=== PATIENT | male | born 1965 | race Caucasian/White ===

== ENCOUNTER 2016-12-15 17:58 | Inpatient (IN) | payer MEDICAID, OTHER ==
[~2016-12-15] VITALS: Ht 170.2 cm; Wt 124.9 kg
[2016-12-15 18:10] VITALS: BP 123/79; PULSE 99; RESP 26; TEMP 99.1; O2SAT 95
[2016-12-15] MEDS ORDERED: [UNRECOGNIZED DRUG - OTHER] PO (18:16)
[2016-12-15 18:17] VITALS: O2SAT 95
--- NOTE | 2016-12-15 18:21 | PD ---
HPI Chief Complaint: Respiratory Symptoms Time Seen by Provider: 18:10 Travel History International Travel<30 days: No Contact w/Intl Traveler<30days: No Traveled to known affect area: No History of Present Illness HPI Patient is a 51-year-old male with a history of lung cancer presents emergency Department with shortness of breath and cough. Patient states been going on for the past few weeks. He is followed by transport medic Aracely and was told he had pneumonia. He states he had just finished the dosing regimen of Levaquin was feeling better he decided coming to be seen. Out in triage she was satting 89% and he was placed on 2 L oxygen brought back to the emergency department for evaluation. Denies any fever denies any sputum production but does endorse a wet cough. He is not currently on chemotherapy but is scheduled to start soon. PFSH Past Medical History Cancer: Yes (ALK LUNG CANCER) Past Surgical History Other Surgery: Yes (PLEURAL EFFUSION) Social History Alcohol Use: Yes Tobacco Use: No Substance Use: No Allergies-Medications (Allergen,Severity, Reaction): Coded Allergies: Penicillins (Verified Allergy, Unknown, 12/15/16) Reported Meds & Prescriptions Reported Meds & Active Scripts Active Reported [[place]] 400 Mg PO BID Review of Systems Except as stated in HPI: all other systems reviewed are Neg Physical Exam Narrative GENERAL: Well-developed well-nourished appears somewhat short of breath but nontoxic. SKIN: Focused skin assessment warm/dry. HEAD: Atraumatic. Normocephalic. EYES: Pupils equal and round. No scleral icterus. No injection or drainage. ENT: No nasal bleeding or discharge. Mucous membranes pink and moist. NECK: Trachea midline. No JVD. CARDIOVASCULAR: Regular rate and rhythm. No murmur appreciated. RESPIRATORY: Tachypneic with decreased breath sounds particularly on the right. No rales no rhonchi appreciated. GASTROINTESTINAL: Abdomen soft, non-tender, nondistended. Hepatic and splenic margins not palpable. MUSCULOSKELETAL: No obvious deformities. No clubbing. No cyanosis. No edema. NEUROLOGICAL: Awake and alert. No obvious cranial nerve deficits. Motor grossly within normal limits. Normal speech. PSYCHIATRIC: Appropriate mood and affect; insight and judgment normal. Data Data Last Documented VS Vital Signs Date Time Temp Pulse Resp B/P (MAP) Pulse Ox O2 Delivery O2 Flow Rate FiO2 12/15/16 18:17 95 8/28/17 18:17 Nasal Cannula 2.00 12/15/16 18:10 99.1 99 26 123/79 (94) Orders Orders Complete Blood Count With Diff (12/15/16 18:10) Comprehensive Metabolic Panel (12/15/16 18:10) Prothrombin Time / Inr (Pt) (12/15/16 18:10) Act Partial Throm Time (Ptt) (12/15/16 18:10) Lactic Acid Sepsis Protocol (12/15/16 18:10) Magnesium (Mg) (12/15/16 18:10) Phosphorus (Po4) (12/15/16 18:10) Ckmb (Isoenzyme) Profile (12/15/16 18:10) Troponin I (12/15/16 18:10) Urinalysis - C+S If Indicated (12/15/16 18:10) Blood Culture (12/15/16 18:10) Chest, Single Ap (12/15/16 18:10) Blood Glucose (12/15/16 18:10) Ecg Monitoring (12/15/16 18:10) Iv Access Insert/Monitor (12/15/16 18:10) Oximetry (12/15/16 18:10) Oxygen Administration (12/15/16 18:10) Vancomycin Inj (Vancomycin Inj) (12/15/16 18:45) Aztreonam Inj (Azactam Inj) (12/15/16 18:45) Ct Pulmonary Angiogram (12/15/16 ) Labs Laboratory Tests Test 12/15/16 18:10 White Blood Count 14.2 TH/MM3 Red Blood Count 5.03 MIL/MM3 Hemoglobin 14.4 GM/DL Hematocrit 44.0 % Mean Corpuscular Volume 87.6 FL Mean Corpuscular Hemoglobin 28.6 PG Mean Corpuscular Hemoglobin Concent 32.7 % Red Cell Distribution Width 13.9 % Platelet Count 342 TH/MM3 Mean Platelet Volume 8.7 FL Neutrophils (%) (Auto) 79.9 % Lymphocytes (%) (Auto) 9.0 % Monocytes (%) (Auto) 7.7 % Eosinophils (%) (Auto) 2.0 % Basophils (%) (Auto) 1.4 % Neutrophils # (Auto) 11.3 TH/MM3 Lymphocytes # (Auto) 1.3 TH/MM3 Monocytes # (Auto) 1.1 TH/MM3 Eosinophils # (Auto) 0.3 TH/MM3 Basophils # (Auto) 0.2 TH/MM3 CBC Comment DIFF FINAL Differential Comment MDM Medical Decision Making Medical Screen Exam Complete: Yes Emergency Medical Condition: Yes Differential Diagnosis pneumonia, sepsis, hypoxic respiratory failure Narrative Course Patient brought to the emergency department room, is placed on 2 L nasal cannula and his oxygen saturation quickly normalized to 96%. He appears much more comfortably after reassess. Blood cultures drawn and sent lactic acid CBC showing white blood cell count of 14,000. Remainder of chemistry workup is pending at this time. Patient was started on vancomycin and Azactam. Has penicillin allergy but was had a kid at the time. He does not know his exact reaction. Patient states he was on an unknown antibiotic and does not have the paperwork and doesn't remember the exact name. He says it was one time a day drug and was 500 mg and when I mention Levaquin he thinks that's the drug he was taken. Patient was discussed with Dr. Tsang at 1900 shift change to follow-up blood work and disposition the patient properly. Diagnosis Primary Impression: Acute respiratory failure with hypoxia Additional Impressions: PNA (pneumonia) Sepsis King Stone MD Dec 15, 2016 18:21
[2016-12-15 18:45] LABS: AUTOMATED NEUTROPHIL # 11.3 TH/MM3 (1.8-7.7); BASOPHIL # 0.2 TH/MM3 (0-0.2); BASOPHIL % 1.4 % (0.0-2.0); EOSINOPHIL # 0.3 TH/MM3 (0-0.4); HEMO FLAGS DIFF FINAL; LYMPHOCYTE # 1.3 TH/MM3 (1.0-4.8); MEAN CELL VOLUME 87.6 FL (80.0-100.0); MEAN CORPUSCULAR HEMOGLOBIN 28.6 PG (27.0-34.0); MEAN CORPUSCULAR HGB CONC 32.7 % (32.0-36.0); MONO % 7.7 % (0.0-8.0); NEUT % 79.9 % (16.0-70.0); PLATELET COUNT 342 TH/MM3 (150-450); RED BLOOD COUNT 5.03 MIL/MM3 (4.50-5.90); RED CELL DISTRIBUTION WIDTH 13.9 % (11.6-17.2); WHITE BLOOD COUNT 14.2 TH/MM3 (4.0-11.0)
[2016-12-15] MEDS ORDERED: VANCOMYCIN INJ 1,000 MG in SODIUM CHLOR 0.9% 250 ML INJ 250 ML IV ONE (18:45)
[2016-12-15] MEDS ORDERED: AZTREONAM INJ 2,000 MG in SODIUM CHLORIDE 0.9% INJ 100 ML IV ONE (18:45)
[2016-12-15 18:59] LABS: CHLORIDE 98 MEQ/L (98-107); POTASSIUM 3.5 MEQ/L (3.5-5.1); SODIUM (NA) 137 MEQ/L (136-145)
[2016-12-15 19:03] LABS: APTT (PATIENT) 28.5 SEC (24.3-30.1); INTERNATIONAL NORMALIZED RATIO 0.9 RATIO; PROTHROMBIN TIME - PATIENT 10.3 SEC (9.8-11.6)
[2016-12-15 19:05] LABS: ANION GAP 8 MEQ/L (5-15); BICARBONATE 31.3 MEQ/L (21.0-32.0); BLOOD UREA NITROGEN 18 MG/DL (7-18); MAGNESIUM 2.1 MG/DL (1.5-2.5)
[2016-12-15 19:07] LABS: ALT (GPT) 18 U/L (12-78)
[2016-12-15 19:08] LABS: AST (GOT) 13 U/L (15-37); GLOMERULAR FILTRATION RATE 84 ML/MIN (>89)
[2016-12-15 19:09] LABS: TOTAL BILIRUBIN ADULT 0.4 MG/DL (0.2-1.0)
[2016-12-15 19:10] LABS: ALKALINE PHOSPHATASE 80 U/L (45-117)
[2016-12-15 19:18] LABS: CREATINE KINASE 79 U/L (39-308)
[2016-12-15] MEDS ORDERED: IOHEXOL 350 MG/ML 10 ML VIAL (for RAD DIAG) IVCONTRAST ONE (19:43)
[2016-12-15 19:51] VITALS: BP 119/78; PULSE 91; RESP 20; O2SAT 96
--- NOTE | 2016-12-15 19:58 | RADRPT ---
EXAM DATE/TIME: 12/15/2016 18:29 [facility] COMPARISON: CT PULMONARY ANGIOGRAM, December 15, 2016, 19:26. INDICATIONS : Cough. MEDICAL HISTORY : Carcinoma, lung. SURGICAL HISTORY : None. ENCOUNTER: Initial ACUITY: 3 days PAIN SCORE: 0/10 LOCATION: Bilateral chest FINDINGS: Prior chest x-rays are unavailable for comparison. There is a CT compatible Infuse-a-Po rt in place from the right internal jugular approach with the tip overlying the SVC. The heart size is normal. The heart and mediastinal structures appear to be shifted towards the right. The left zulma g appears clear. There is increased density at the periphery of the right lung and at the right base. There is elevation of the right hemidiaphragm. The bony structures are grossly intact. CONCLUSION: 1. Volume loss with suspected pleural and parenchymal changes at the right lung. This can be correla augustine if the patient has had treatment at the right lung which could lead to atelectasis. Superimposed areas of consolidation at the right lung could have a similar appearance. 2. The left lung is clear. Eugene Roy MD on December 15, 2016 at 19:49 Board Certified Radiologist. This report was verified electronically.
--- NOTE | 2016-12-15 21:10 | RADRPT ---
EXAM DATE/TIME: 12/15/2016 19:26 [facility] COMPARISON: No previous studies available for comparison. INDICATIONS : Shortness of breath. Cough. Evaluate for embolism. IV CONTRAST: 100 cc Omnipaque 350 (iohexol) IV RADIATION DOSE: 21.74 CTDIvol (mGy) MEDICAL HISTORY : Carcinoma, lung. SURGICAL HISTORY : None. ENCOUNTER: Initial ACUITY: 3 weeks PAIN SCALE: 5/10 LOCATION: Bilateral chest TECHNIQUE: Volumetric scanning of the chest was performed using a pulmonary embolism protocol MIP images were re constructed. Using automated exposure control and adjustment of the mA and/or kV according to patien t size, radiation dose was kept as low as reasonably achievable to obtain optimal diagnostic quality images. DICOM format image data is available electronically for review and comparison. Follow-up recommendations for detected pulmonary nodules are based at a minimum on nodule size and pa tient risk factors according to Fleischner Society Guidelines. FINDINGS: No pulmonary embolus is seen. The patient does appear to have volume loss in the right chest. This can be correlated if the patient has had any prior surgical intervention or treatment on the right si de. The patient does have areas of consolidation posterior right upper lobe, the lateral right midlu ng and at the anterior mid and posterior right lower lung. There is a suspected loculated pleural ef fusion seen posteriorly measuring 10.0 x 4.9 cm. The left lung is grossly clear. There is prominent soft tissue density in the subcarinal region and in the right tracheal bronchial region concerning f or possible adenopathy. There is increased density seen at the right hilum. There are mildly promin ent lymph nodes seen in the prevascular region on the left side measuring up to 1.3 cm. There do delmi ear to be enlarged lymph nodes in the right axillary region measuring up to 1.8 cm. There is a right -sided [id number] in place. The patient does have a 2.3 cm low density left adrenal mass consiste nt with an adenoma. There are some mildly prominent lymph nodes in the upper celiac region. Focal jorge ne lesions are not clearly seen. CONCLUSION: 1. No pulmonary embolus. 2. Areas of consolidation seen throughout the right lung. There also appears to be volume loss in th e right lung with shift of the heart and mediastinal structures towards the right. It should be petr elated if the patient has had treatment in the right lung. The patient has a history of lung carcino ma. There are areas of increased density seen throughout much of the right lung could be related to p ost treatment change, acute consolidation from infection or neoplastic change. 3. Suspected loculated effusions seen posteriorly and inferiorly in the right chest. 4. Adenopathy in the right axillary region and possibly in the subcarinal and right hilar regions. T here are also some mildly prominent lymph nodes in the left prevascular region. There are mildly pro minent lymph nodes in the upper celiac region. 5. Left adrenal gland adenoma. Eugene Roy MD on December 15, 2016 at 20:51 Board Certified Radiologist. This report was verified electronically.
[2016-12-15] MEDS ORDERED: Vancomycin Consult Pharmacy 1 EA OTHER SCH (22:00)
[2016-12-15] MEDS ORDERED: SODIUM CHLORIDE 0.9% FLUSH 10 ML FLUSH IV FLUSH PRN (22:00)
[2016-12-15] MEDS ORDERED: NALOXONE HCL 0.4 MG/ML AMP IV PRN (22:00)
[2016-12-15] MEDS ORDERED: RESP: IPRATROPIUM 0.5 MG/2.5 ML NEB NEB PRN (22:00)
[2016-12-15 22:11] LABS: BLOOD GAS CARBOXYHEMOGLOBIN 1.2 % (0-4); BLOOD GAS HCO3 32 mmol/L (22-26); BLOOD GAS O2 HGB SATURATION 89 % (90-100); BLOOD GAS OXYGEN CONTENT 17.2 Vol % (12.0-20.0); BLOOD GAS PCO2 51 mmHG (38-42); BLOOD GAS PO2 64 mmHG (61-120); BLOOD GAS TOTAL HGB 13.8 G/DL (12.0-16.0); TEMP CORR TO 98.6
[2016-12-15 22:12] LABS: CRITICAL VALUE YES; DRAW SITE RT RADIAL; FIO2 21 %; NUMBER OF ARTERIAL PUNCTURES 2; OXYGEN DEVICE ROOM AIR; STAT YES; ULNAR PULSE PRESENT
--- NOTE | 2016-12-15 22:17 | PD ---
Physical Exam Time Seen by Provider: 22:[address] Stone had me check the results of the CT angiogram and admit the patient. Data Data Last Documented VS Vital Signs Date Time Temp Pulse Resp B/P (MAP) Pulse Ox O2 Delivery O2 Flow Rate FiO2 12/15/16 19:51 91 20 119/78 (92) 96 Nasal Cannula 4.00 12/15/16 18:10 99.1 Orders Orders Complete Blood Count With Diff (12/15/16 18:10) Comprehensive Metabolic Panel (12/15/16 18:10) Prothrombin Time / Inr (Pt) (12/15/16 18:10) Act Partial Throm Time (Ptt) (12/15/16 18:10) Lactic Acid Sepsis Protocol (12/15/16 18:10) Magnesium (Mg) (12/15/16 18:10) Phosphorus (Po4) (12/15/16 18:10) Ckmb (Isoenzyme) Profile (12/15/16 18:10) Troponin I (12/15/16 18:10) Urinalysis - C+S If Indicated (12/15/16 18:10) Blood Culture (12/15/16 18:10) Chest, Single Ap (12/15/16 18:10) Blood Glucose (12/15/16 18:10) Ecg Monitoring (12/15/16 18:10) Iv Access Insert/Monitor (12/15/16 18:10) Oximetry (12/15/16 18:10) Oxygen Administration (12/15/16 18:10) Vancomycin Inj (Vancomycin Inj) (12/15/16 18:45) Aztreonam Inj (Azactam Inj) (12/15/16 18:45) Ct Pulmonary Angiogram (12/15/16 ) Iohexol 350 Inj (Omnipaque 350 Inj) (12/15/16 19:43) Arterial Blood Gas (Abg) (12/15/16 ) Electrocardiogram (12/15/16 18:07) Admit To Inpatient (12/15/16 ) Vital Signs (Adult) Q4H (12/15/16 21:58) Activity Oob With Assistance (12/15/16 21:58) Vice President Of Manufacturing / Telemetry .CONTINUOUS (12/15/16 21:58) Intake + Output VASILIY.QSHIFT (12/15/16 21:58) Diet Heart Healthy (12/16/16 Breakfast) Sodium Chloride 0.9% Flush (Ns Flush) (12/15/16 22:00) Sodium Chloride 0.9% Flush (Ns Flush) (12/16/16 09:00) Basic Metabolic Panel (Bmp) (12/16/16 06:00) Complete Blood Count With Diff (12/16/16 06:00) Pt Request For Service (12/15/16 21:58) Case Management Consult (12/15/16 21:58) Naloxone Inj (Narcan Inj) (12/15/16 22:00) Inpatient Certification (12/15/16 ) Ipratropium Neb (Atrovent Neb) (12/15/16 22:00) Vancomycin Consult Pharmacy (Vancomycin (12/15/16 22:00) Aztreonam Inj (Azactam Inj) (12/16/16 09:00) Consult Pulmonology (12/15/16 ) Admit Order (Ed Use Only) (12/15/16 21:57) Admit Order (Ed Use Only) (12/15/16 21:57) (Hub Use Only)Inp Phy Cons/Ref (12/15/16 ) Labs Laboratory Tests Test 12/15/16 18:10 White Blood Count 14.2 TH/MM3 Red Blood Count 5.03 MIL/MM3 Hemoglobin 14.4 GM/DL Hematocrit 44.0 % Mean Corpuscular Volume 87.6 FL Mean Corpuscular Hemoglobin 28.6 PG Mean Corpuscular Hemoglobin Concent 32.7 % Red Cell Distribution Width 13.9 % Platelet Count 342 TH/MM3 Mean Platelet Volume 8.7 FL Neutrophils (%) (Auto) 79.9 % Lymphocytes (%) (Auto) 9.0 % Monocytes (%) (Auto) 7.7 % Eosinophils (%) (Auto) 2.0 % Basophils (%) (Auto) 1.4 % Neutrophils # (Auto) 11.3 TH/MM3 Lymphocytes # (Auto) 1.3 TH/MM3 Monocytes # (Auto) 1.1 TH/MM3 Eosinophils # (Auto) 0.3 TH/MM3 Basophils # (Auto) 0.2 TH/MM3 CBC Comment DIFF FINAL Differential Comment Prothrombin Time 10.3 SEC Prothromb Time International Ratio 0.9 RATIO Activated Partial Thromboplast Time 28.5 SEC Blood Urea Nitrogen 18 MG/DL Creatinine 0.95 MG/DL Random Glucose 135 MG/DL Total Protein 7.5 GM/DL Albumin 3.3 GM/DL Calcium Level 8.6 MG/DL Phosphorus Level 4.5 MG/DL Magnesium Level 2.1 MG/DL Alkaline Phosphatase 80 U/L Aspartate Amino Transf (AST/SGOT) 13 U/L Alanine Aminotransferase (ALT/SGPT) 18 U/L Total Bilirubin 0.4 MG/DL Sodium Level 137 MEQ/L Potassium Level 3.5 MEQ/L Chloride Level 98 MEQ/L Carbon Dioxide Level 31.3 MEQ/L Anion Gap 8 MEQ/L Estimat Glomerular Filtration Rate 84 ML/MIN Lactic Acid Level 1.7 mmol/L Total Creatine Kinase 79 U/L Troponin I LESS THAN 0.02 NG/ML MDM Medical Record Reviewed: Yes Supervised Visit with KASSANDRA: Yes Interpretation(s) The CT angiogram shows no pulmonary embolus but there are areas of consolidation seen throughout the right lung. Also there is a volume loss in the right lung with shift of the heart and mediastinum towards the right. The patient does have a history of cancer but unfortunately we do not have a previous film to compare with. There are suspected loculated effusion seen posterior and inferiorly in the right chest. Adenopathy in the right axillary region is noted. The blood gases on room air show pH 7.4, CO2 51, PO2 64 and 88.5% oxygenation on room air. Differential Diagnosis Pneumonia, hypoxemia, congestive heart failure, lung cancer, pleural effusion Narrative Course The patient has a right pleural effusion with possible pneumonia and hypoxemia. He does have known lung cancer. He will be admitted to the ICU here at [facility]. Physician Communication Physician Communication I discussed the patient with Dr. Pavon. Diagnosis Primary Impression: PNA (pneumonia) Additional Impressions: Hypoxemia Lung malignancy Pleural effusion, right Admitting Information Admitting Physician Requests: Admit Barney Tsang MD Dec 15, 2016 22:17
[2016-12-15 22:52] VITALS: BP 101/88; PULSE 94; RESP 22; O2SAT 94
[2016-12-15] MEDS ORDERED: VANCOMYCIN 1,000 MG/NS 250 ML IV ONE ×2 (23:00)
[2016-12-15 23:07] LABS: BLOOD, URINE SMALL (NEG); GLUCOSE,URINE NEG (NEG); KETONE, URINE NEG (NEG); NITRITE,URINE NEG (NEG)
[2016-12-15 23:21] LABS: MUCUS URINE FEW /lpf (OCC); URINE COLOR YELLOW (YELLW/STRAW)
[2016-12-15 23:22] VITALS: BP 117/80; PULSE 84; RESP 30; TEMP 98.4; O2SAT 97
[2016-12-15 23:22] LABS: COMMENT (UR) CULT NOT INDICATED; CULTURE IF INDICATED CULT NOT INDICATED; SQUAMOUS EPITHELIAL CELL URINE 0-5 /hpf (0-5)
[2016-12-15 23:36] VITALS: O2SAT 96
[2016-12-15] MEDS: CHLORHEXIDINE GLUCONATE 2 % 1 PACK (2 CLOTHS)(taper/protocol) TOPICAL SCH (23:43)
[2016-12-15] MEDS ORDERED: CHLORHEXIDINE GLUCONATE 2 % 1 PACK (2 CLOTHS)(extra cloths) TOPICAL PRN (23:45)
[2016-12-16] VITALS (25 sets, daily range): BP systolic 91–147; BP diastolic 54–88; PULSE 66–90; RESP 10–26; TEMP 98–98.9; O2SAT 91–97
[2016-12-16 05:02] LABS: AUTOMATED NEUTROPHIL # 10.5 TH/MM3 (1.8-7.7); BASOPHIL # 0.1 TH/MM3 (0-0.2); BASOPHIL % 0.5 % (0.0-2.0); EOSINOPHIL # 0.2 TH/MM3 (0-0.4); EOSINOPHIL % 1.7 % (0.0-4.0); HEMATOCRIT 39.8 % (39.0-51.0); HEMO FLAGS DIFF FINAL; LYMPH % 7.1 % (9.0-44.0); LYMPHOCYTE # 0.9 TH/MM3 (1.0-4.8); MEAN CELL VOLUME 87.4 FL (80.0-100.0); MEAN CORPUSCULAR HEMOGLOBIN 28.5 PG (27.0-34.0); MEAN CORPUSCULAR HGB CONC 32.6 % (32.0-36.0); MONO % 6.6 % (0.0-8.0); NEUT % 84.1 % (16.0-70.0); PLATELET COUNT 290 TH/MM3 (150-450); RED BLOOD COUNT 4.55 MIL/MM3 (4.50-5.90); RED CELL DISTRIBUTION WIDTH 13.5 % (11.6-17.2); WHITE BLOOD COUNT 12.5 TH/MM3 (4.0-11.0)
[2016-12-16 05:16] LABS: POTASSIUM 3.9 MEQ/L (3.5-5.1)
[2016-12-16 05:21] LABS: BICARBONATE 33.6 MEQ/L (21.0-32.0)
[2016-12-16] MEDS: AZTREONAM INJ 2,000 MG in SODIUM CHLORIDE 0.9% INJ 100 ML IV SCH ×2 (08:56→20:54)
[2016-12-16] MEDS: SODIUM CHLORIDE 0.9% FLUSH 10 ML FLUSH IV FLUSH SCH ×2 (08:56→20:54)
--- NOTE | 2016-12-16 09:10 | EKG ---
Date Performed: 12/15/2016 Time Performed: 18:07:33 PTAGE: 51 years EKG: Sinus rhythm POSSIBLE LEFT ATRIAL ENLARGEMENT BORDERLINE ECG INTERPRETATION BASED ON A DEFAULT AGE OF 42 YEARS NO PREVIOUS TRACING DOCTOR: Swapnil Zamorano Interpretating Date/Time 12/16/2016 09:08:06
[2016-12-16] MEDS ORDERED: LACTULOSE SYRUP 20 GM/30 ML CUP PO PRN (11:00)
[2016-12-16] MEDS ORDERED: ACETAMINOPHEN 325 MG TAB PO PRN ×2 (11:00)
[2016-12-16] MEDS ORDERED: SENNOSIDES 8.6 MG TAB PO PRN (11:00)
[2016-12-16] MEDS ORDERED: BISACODYL 10 MG SUPP RECTAL PRN (11:00)
[2016-12-16] MEDS ORDERED: [UNRECOGNIZED DRUG - OTHER] PO SCH (11:00)
[2016-12-16] MEDS ORDERED: MAGNESIUM HYDROXIDE SUSP 30 ML CUP PO PRN (11:00)
[2016-12-16] MEDS ORDERED: ONDANSETRON HCL 4 MG/2 ML VIAL IVP PRN (11:00)
--- NOTE | 2016-12-16 13:10 | HHI.HP ---
HPI Service [facility] Primary Care Physician No Primary Care Physician Admission Diagnosis pneumonia, pleural effusion Diagnoses: (1) Sepsis Diagnosis: Principal (2) Acute respiratory failure with hypoxia Diagnosis: Principal (3) Hypoxemia (4) Loculated pleural effusion Diagnosis: Principal (5) PNA (pneumonia) Diagnosis: Principal Chief Complaint: Shortness of breath, fatigue Travel History International Travel<30 Days: No Contact w/Intl Traveler <30 Da: No Traveled to Known Affected Are: No Sepsis Criteria SIRS Criteria (2 or more): Heart rate over 90, WBC > 40062, < 4000 or > 10% bands Sepsis Criteria (SIRS+source): Infect source susp/known Criteria Outcome: Meets sepsis criteria History of Present Illness Written by Ignacio Tsang, acting as scribe for Dr. Drew on 12/16/16 at 13: 10. 51 year-old male with known history of lung cancer who is undergoing chemotherapy at this time presented to the hospital because of 2 week history of shortness of breath and fatigue. 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 Salazar at [facility]. Patient has undergone 21 radiation treatments and is on chemotherapy. Patient states that he was just takien off 1 chemotherapeutic agent approximate 6 weeks ago. He started to feel better that time and was diagnosed with pneumonia and was given 2 week regimen of Levaquin, steroids. Patient felt much better. Then approximately 2 weeks ago he started feeling shortness of breath, fatigue and run down again. He did go to the oncologist office on Thursday of last week in which he actually felt good at that time. Then on Thursday he started feeling bad again. Patient came to the hospital because he thought he may have pneumonia again and needed treatment. Patient was found to have acute respiratory failure, sepsis, loculated pleural effusion. It was recommended that the patient be admitted to ICU for continued management and treatment. Patient does have a history of pleural effusion in which he did have talc treatment in February 2015. He is being followed by [facility] and was notified that if his effusion got any larger than he would need to have thoracentesis performed. Review of Systems Constitutional: COMPLAINS OF: Fatigue Respiratory: COMPLAINS OF: Shortness of breath Except as stated in HPI: all other systems reviewed are Neg Past Family Social History Past Medical History ALK lung carcinoma Past Surgical History Thoracentesis with talc treatment Reported Medications Reported Meds & Active Scripts Active Reported [[place]] 400 Mg PO BID Allergies: Coded Allergies: Penicillins (Verified Allergy, Unknown, 12/15/16) Family History Reviewed is significant for father at age 72 from pancreatic cancer. Mother still alive at age 69 with breast cancer. Social History Patient states that he smoked for approximately 4 years, 16 years ago. He does drink alcohol proximal one time a week 2-3 beers. Denies any illicit drugs Physical Exam Vital Signs Vital Signs Date Time Temp Pulse Resp B/P (MAP) Pulse Ox O2 Delivery O2 Flow Rate FiO2 12/16/16 11:00 80 16 113/66 (82) 12/16/16 10:00 76 16 115/62 (79) 95 12/16/16 09:00 74 13 114/79 (91) 95 12/16/16 08:00 98.8 74 10 115/72 (86) 95 12/16/16 07:00 68 12 124/84 (97) 95 12/16/16 06:00 70 11 131/77 (95) 96 12/16/16 06:00 70 12/16/16 05:00 68 10 114/70 (85) 97 12/16/16 04:00 98.7 74 11 126/77 (93) 96 12/16/16 04:00 74 12/16/16 03:00 82 12 123/81 (95) 97 12/16/16 02:00 72 12/16/16 02:00 72 11 103/77 (86) 97 12/16/16 01:00 72 10 108/73 (85) 97 12/16/16 00:00 74 12/16/16 00:00 74 13 105/67 (80) 97 12/15/16 23:36 96 Nasal Cannula 4.00 12/15/16 23:22 98.4 84 30 117/80 (92) 97 12/15/16 23:21 12/15/16 22:52 94 22 101/88 (92) 94 Nasal Cannula 3.00 12/15/16 19:51 91 20 119/78 (92) 96 Nasal Cannula 4.00 12/15/16 18:17 95 12/15/16 18:17 Nasal Cannula 2.00 12/15/16 18:10 99.1 99 26 123/79 (94) 95 Physical Exam GENERAL: Well-developed, well-nourished, in no acute distress. alert and orientated HEENT: Head is normocephalic without any lesions or masses noted. Facial features are symmetric. Eyes: Pupils equal round reactive to light. Extraocular muscles are intact. Conjunctivae were clear. Oropharyngeal: Pharynx without any erythema edema. Tongue is midline without deviation. Buccal mucosa is moist without any masses or lesions NECK: Supple without any masses. Trachea midline no deviation. No JVD, no bruits are appreciated CARDIAC: Regular rhythm, regular rate. S1/S2 are heard. No murmurs gallops or rubs. LUNGS: Clear to auscultation bilaterally. No wheeze, rhonchi or rales. No use of accessory muscles on inspiration or expiration. ABDOMEN: Soft, nontender. Nondistended. Bowel sounds heard in all 4 quadrants. No organomegaly or masses. Negative rebound, negative guarding EXTREMITIES: No edema, pulses are equal bilaterally. No cyanosis or clubbing NEUROLOGY: Mood and affect appear appropriate. Cranial nerves II through XII grossly intact. Muscle strength 5/5 in upper and lower extremities bilaterally. Deep tendon reflexes are 2+ in upper and lower extremities bilaterally. Laboratory Laboratory Tests Test 12/15/16 18:10 12/15/16 21:56 12/15/16 22:31 12/15/16 23:16 White Blood Count 14.2 Red Blood Count 5.03 Hemoglobin 14.4 Hematocrit 44.0 Mean Corpuscular Volume 87.6 Mean Corpuscular Hemoglobin 28.6 Mean Corpuscular Hemoglobin Concent 32.7 Red Cell Distribution Width 13.9 Platelet Count 342 Mean Platelet Volume 8.7 Neutrophils (%) (Auto) 79.9 Lymphocytes (%) (Auto) 9.0 Monocytes (%) (Auto) 7.7 Eosinophils (%) (Auto) 2.0 Basophils (%) (Auto) 1.4 Neutrophils # (Auto) 11.3 Lymphocytes # (Auto) 1.3 Monocytes # (Auto) 1.1 Eosinophils # (Auto) 0.3 Basophils # (Auto) 0.2 CBC Comment DIFF FINAL Differential Comment Prothrombin Time 10.3 Prothromb Time International Ratio 0.9 Activated Partial Thromboplast Time 28.5 Blood Urea Nitrogen 18 Creatinine 0.95 Random Glucose 135 Total Protein 7.5 Albumin 3.3 Calcium Level 8.6 Phosphorus Level 4.5 Magnesium Level 2.1 Alkaline Phosphatase 80 Aspartate Amino Transf (AST/SGOT) 13 Alanine Aminotransferase (ALT/SGPT) 18 Total Bilirubin 0.4 Sodium Level 137 Potassium Level 3.5 Chloride Level 98 Carbon Dioxide Level 31.3 Anion Gap 8 Estimat Glomerular Filtration Rate 84 Lactic Acid Level 1.7 Total Creatine Kinase 79 Troponin I LESS THAN 0.02 Blood Gas Puncture Site RT RADIAL Blood Gas Patient Temperature 98.6 Blood Gas HCO3 32 Blood Gas Base Excess 7.0 Blood Gas Oxygen Saturation 89 Arterial Blood pH 7.41 Arterial Blood Partial Pressure CO2 51 Arterial Blood Partial Pressure O2 64 Arterial Blood Oxygen Content 17.2 Arterial Blood Carboxyhemoglobin 1.2 Arterial Blood Methemoglobin 1.0 Blood Gas Hemoglobin 13.8 Oxygen Delivery Device ROOM AIR Blood Gas Inspired Oxygen 21 Urine Color YELLOW Urine Turbidity CLEAR Urine pH 5.0 Urine Specific [place] GREATER THAN 1.035 Urine Protein TRACE Urine Glucose (UA) NEG Urine Ketones NEG Urine Occult Blood SMALL Urine Nitrite NEG Urine Bilirubin NEG Urine Leukocyte Esterase NEG Urine RBC 4-9 Urine Squamous Epithelial Cells 0-5 Urine Mucus FEW Microscopic Urinalysis Comment CULT NOT INDICATED Nasal Screen MRSA (PCR) MRSA NOT DETECTED Test 12/16/16 04:25 White Blood Count 12.5 Red Blood Count 4.55 Hemoglobin 13.0 Hematocrit 39.8 Mean Corpuscular Volume 87.4 Mean Corpuscular Hemoglobin 28.5 Mean Corpuscular Hemoglobin Concent 32.6 Red Cell Distribution Width 13.5 Platelet Count 290 Mean Platelet Volume 8.2 Neutrophils (%) (Auto) 84.1 Lymphocytes (%) (Auto) 7.1 Monocytes (%) (Auto) 6.6 Eosinophils (%) (Auto) 1.7 Basophils (%) (Auto) 0.5 Neutrophils # (Auto) 10.5 Lymphocytes # (Auto) 0.9 Monocytes # (Auto) 0.8 Eosinophils # (Auto) 0.2 Basophils # (Auto) 0.1 CBC Comment DIFF FINAL Differential Comment Blood Urea Nitrogen 21 Creatinine 0.89 Random Glucose 127 Calcium Level 8.4 Sodium Level 138 Potassium Level 3.9 Chloride Level 99 Carbon Dioxide Level 33.6 Anion Gap 5 Estimat Glomerular Filtration Rate 91 Date/Time Source Procedure Growth Status 12/15/16 18:15 Blood Peripheral Aerobic Blood Culture - Preliminary NO GROWTH IN 1 DAY Resulted 12/15/16 18:15 Blood Peripheral Anaerobic Blood Culture - Preliminary NO GROWTH IN 1 DAY Resulted Result Diagram: 12/16/16 0425 12/16/16 0425 Imaging Chest x-ray image interpreted by me with volume loss on the right lung no previous image for comparison Last Impressions Chest X-Ray 12/15/16 1810 Signed Impressions: Service Date/Time: Thursday, December 15, 2016 18:29 - CONCLUSION: 1. Volume loss with suspected pleural and parenchymal changes at the right lung. This can be correlated if the patient has had treatment at the right lung which could lead to atelectasis. Superimposed areas of consolidation at the right lung could have a similar appearance. 2. The left lung is clear. Eugene Roy MD CT Angiography 12/15/16 0000 Signed Impressions: Service Date/Time: Thursday, December 15, 2016 19:26 - CONCLUSION: 1. No pulmonary embolus. 2. Areas of consolidation seen throughout the right lung. There also appears to be volume loss in the right lung with shift of the heart and mediastinal structures towards the right. It should be correlated if the patient has had treatment in the right lung. The patient has a history of lung carcinoma. There are areas of increased density seen throughout much of the right lung could be related to post treatment change, acute consolidation from infection or neoplastic change. 3. Suspected loculated effusions seen posteriorly and inferiorly in the right chest. 4. Adenopathy in the right axillary region and possibly in the subcarinal and right hilar regions. There are also some mildly prominent lymph nodes in the left prevascular region. There are mildly prominent lymph nodes in the upper celiac region. 5. Left adrenal gland adenoma. Eugene Roy MD Caprini VTE Risk Assessment Caprini VTE Risk Assessment: Mod/High Risk (score >= 2) Caprini Risk Assessment Model Point Value = 1 Point Value = 2 Point Value = 3 Point Value = 5 Age 41-60 Minor surgery BMI > 25 kg/m2 Swollen legs Varicose veins or History of unexplained or recurrent spontaneous Oral contraceptives or hormone replacement Sepsis (< 1 month) Serious lung disease, including pneumonia (< 1 month) Abnormal pulmonary function Acute myocardial infarction Congestive heart failure (< 1 month) History of inflammatory bowel disease Medical patient at bed rest Age 61-74 Arthroscopic surgery Major open surgery (> 45 min) Laparoscopic surgery (> 45 min) Malignancy Confined to bed (> 72 hours) Immobilizing plaster cast Central venous access Age >= 75 History of VTE Family history of VTE Factor V Leiden Prothrombin [id number] Lupus anticoagulant Anticardiolipin antibodies Elevated serum homocysteine Heparin-induced thrombocytopenia Other congenital or acquired thrombophilia Stroke (< 1 month) Elective arthroplasty Hip, pelvis, or leg fracture Acute spinal cord injury (< 1 month) Prophylaxis Regimen Total Risk Factor Score Risk Level Prophylaxis Regimen 0-1 Low Early ambulation 2 Moderate Order ONE of the following: *Sequential Compression Device (SCD) *Heparin 5000 units SQ BID 3-4 Higher Order ONE of the following medications: *Heparin 5000 units SQ TID *Enoxaparin/Lovenox 40 mg SQ daily (WT < 150 kg, CrCl > 30 mL/min) *Enoxaparin/Lovenox 30 mg SQ daily (WT < 150 kg, CrCl > 10-29 mL/min) *Enoxaparin/Lovenox 30 mg SQ BID (WT < 150 kg, CrCl > 30 mL/min) AND/OR *Sequential Compression Device (SCD) 5 or more Highest Order ONE of the following medications: *Heparin 5000 units SQ TID (Preferred with Epidurals) *Enoxaparin/Lovenox 40 mg SQ daily (WT < 150 kg, CrCl > 30 mL/min) *Enoxaparin/Lovenox 30 mg SQ daily (WT < 150 kg, CrCl > 10-29 mL/min) *Enoxaparin/Lovenox 30 mg SQ BID (WT < 150 kg, CrCl > 30 mL/min) AND *Sequential Compression Device (SCD) Assessment and Plan Assessment and Plan 51 year-old male with known history of ALK lung carcinoma who presented to hospital because of shortness of breath, fatigue Sepsis: Patient met criteria on admission with leukocytosis, tachycardia, pneumonia. Patient started on empirical antibiotics to include vancomycin, Azactam, will add Zithromax. Blood cultures are negative for 1 day, continue to follow. Obtain sputum culture, Legionella culture, influenza A and B, pneumococcal antigen. Acute hypoxic respiratory failure: Likely secondary to pneumonia, pleural effusion. Continue O2 supplementation maintain O2 sats greater 92%, nebulizer treatment, incentive spirometry Loculated effusion: Patient does have history of pleural effusion, had thoracentesis with talc treatment February 2015. CT scan does indicate 10 x 4.9 cm loculated effusion. With the patient's recent history of pneumonia, undergoing chemotherapy, persistent effusion. Empyema cannot be completely ruled out. We'll need to perform thoracentesis to evaluate for exudative/ transudative effusion. This was discussed with patient's oncologist Dr. Salazar, who is in agreement that fluids should be acquired and tested for pathology and microbiology. It was indicated that if patient does have empyema then patient should be transferred to [facility] for management. DVT prevention: Sequential compression devices. Consider pharmacological prophylaxis post thoracentesis This note was transcribed by franklin Tsang. I, Dr. Dangelo Drew personally performed the history, physical exam, and medical decision making; and confirmed the accuracy of the information in the transcribed note. Authenticated by Dr. Dangelo Drew on 12/16/16 at 13:20. Discussed Condition With Patient and Physician Certification 2 Midnight Certification Type: Admission for Inpatient Services Order for Inpatient Services The services are ordered in accordance with Medicare regulations or non- Medicare payer requirements, as applicable. In the case of services not specified as inpatient-only, they are appropriately provided as inpatient services in accordance with the 2-midnight benchmark. Estimated LOS (days): 2 days is the estimated time the patient will need to remain in the hospital, assuming treatment plan goals are met and no additional complications. Post-Hospital Plan: Not yet determined Problem Qualifiers (1) PNA (pneumonia): Ignacio Tsang Dec 16, 2016 13:10 Dangelo Drew MD Dec 16, 2016 13:20
[2016-12-16] MEDS: VANCOMYCIN INJ 2,000 MG in SODIUM CHLORID 0.9% 500 ML INJ 500 ML IV SCH ×2 (13:39→23:56)
[2016-12-16] MEDS: RESP: ALBUTEROL 2.5 MG/3 ML NEB (PRN) NEB ×2 (13:55→23:59)
[2016-12-16] MEDS ORDERED: AZITHROMYCIN 250 MG TAB PO ONE (16:00)
--- NOTE | 2016-12-16 19:29 | MB ---
cc: MICHAEL MARISCAL DATE OF CONSULTATION 12/16/[address] Drew. REASON FOR CONSULTATION Evaluate for lung infiltrates and cancer of the lung. HISTORY OF THE PRESENT ILLNESS Mr. Pinto is a pleasant 51-year-old male who is known to me from admission at [facility]. He was diagnosed with adenocarcinoma of the lung ALK positive. He had malignant pleural effusion. The patient is being followed by Dr. Salazar at [facility]. He has received 21 radiation treatments and chemotherapy. He also received Opdivo. Recently he developed discomfort in his chest, was told he has a pneumonia. He was given antibiotic. He was not getting better he decided to come to the emergency room over here. He had a workup done. IMAGING He had a CTA of the chest done which shows no pulmonary embolism. It shows an area of consolidation throughout the right lung, suspected loculated effusion of the right chest and left adrenal adenoma. LABORATORY DATA His CBC showed WBC count 12.5, hemoglobin 13, hematocrit 39.8, MCV 87, platelet count 290. Sodium 130, potassium 3.9, chloride 99, CO2 32, BUN 21, creatinine 0.89. Blood gas pH 7.41, pCO2 51, pO2 64, bicarb 32. PAST MEDICAL HISTORY Significant for: A history of CA of the lung. MEDICATIONS He is currently takin. Zithromax. 2. Vancomycin IV. 3. Magnesium oxide. 4. Aztreonam. ALLERGIES HE IS ALLERGIC TO PENICILLIN. SOCIAL HISTORY He is . It is his second marriage. Has a history of smoking which he quit a long time ago. No alcohol use. FAMILY HISTORY Noncontributory. REVIEW OF SYSTEMS Normally he is up, around and active. Weight is stable. No deep venous thrombosis. No pulmonary embolism. No seizure, stroke or epilepsy. PHYSICAL EXAMINATION GENERAL: Well built, well-nourished male not in any acute distress. VITAL SIGNS: Blood pressure 115/54, heart rate 74, respirations 18, temperature 98.4. HEENT: Pupils are equal and reactive to light. Oral mucosa, nasal mucosa normal. NECK: Supple. JVP not raised. CHEST: Decreased breath sounds in the right side. CARDIOVASCULAR: S1, S2 normal. ABDOMEN: Benign. EXTREMITIES: No edema. IMPRESSION 1. Right lung pneumonia. 2. Small loculated pleural effusion versus pleural changes because of his previous pleurodesis. 3. Adenocarcinoma of the lung status post radiation treatment. He is getting chemotherapy at [facility]. PLAN I discussed with the patient and his pleural effusion if any is small and mostly pleural changes with his history of malignant pleural effusion and pleurodesis probably will not be able to drain much. Continue with antibiotic. Monitor him clinically. If he has high grade fever, concern for ____ and he will get pleurocentesis. Further treatment will depend on the course in the hospital. Thank you Dr. Drew for this consultation. MD ESTEFANY Tellez/ANGELA /6:08 PM /6:55 PM
[2016-12-16] MEDS: [UNRECOGNIZED DRUG - OTHER] PO SCH (20:53)
[2016-12-16] MEDS: DOCUSATE SODIUM 50 MG/SENNA 8.6 MG TAB PO SCH (20:54)
[2016-12-16] MEDS: CHLORHEXIDINE GLUCONATE 2 % 1 PACK (2 CLOTHS)(taper/protocol) TOPICAL SCH (23:57)
[2016-12-17] VITALS (16 sets, daily range): BP systolic 100–134; BP diastolic 56–80; PULSE 70–88; RESP 10–22; TEMP 97.8–99; O2SAT 93–95
[2016-12-17] MEDS ORDERED: AZITHROMYCIN 250 MG TAB PO SCH (09:00)
[2016-12-17] MEDS: DOCUSATE SODIUM 50 MG/SENNA 8.6 MG TAB PO SCH ×2 (09:00→21:00)
[2016-12-17] MEDS: SODIUM CHLORIDE 0.9% FLUSH 10 ML FLUSH IV FLUSH SCH ×2 (09:04→21:00)
[2016-12-17] MEDS: [UNRECOGNIZED DRUG - OTHER] PO SCH ×2 (09:04→21:19)
[2016-12-17] MEDS: AZTREONAM INJ 2,000 MG in SODIUM CHLORIDE 0.9% INJ 100 ML IV SCH (09:05)
--- NOTE | 2016-12-17 11:43 | HHI.PR ---
Subjective Remarks Recent seen and evaluated in follow-up for pneumonia with hypoxemia/hypoxemic respiratory failure. Overall improved although still hypoxemic at rest; 86% on room air. There is some dyspnea with conversation. 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 Objective Vitals Vital Signs Date Time Temp Pulse Resp B/P (MAP) Pulse Ox O2 Delivery O2 Flow Rate FiO2 12/17/16 10:00 80 22 113/59 (77) 93 12/17/16 10:00 80 12/17/16 09:00 78 13 111/66 (81) 93 12/17/16 08:00 98.2 70 10 115/66 (82) 93 12/17/16 08:00 96 Nasal Cannula 4.00 12/17/16 08:00 73 12/17/16 08:00 93 Nasal Cannula 4.00 12/17/16 07:00 72 12 112/73 (86) 94 12/17/16 06:00 74 12 106/56 (73) 94 12/17/16 06:00 75 12/17/16 05:00 78 15 119/72 (88) 93 12/17/16 04:00 72 12/17/16 04:00 98.4 72 16 111/80 (90) 94 12/17/16 03:00 76 11 113/72 (86) 94 12/17/16 02:00 76 12/17/16 02:00 82 14 134/68 (90) 93 12/17/16 01:00 84 18 124/68 (86) 93 12/17/16 00:00 81 12/17/16 00:00 97.8 81 18 100/69 (79) 94 12/16/16 23:00 86 25 140/88 (105) 95 12/16/16 22:05 94 Nasal Cannula 3.00 12/16/16 22:00 83 12/16/16 22:00 90 26 132/75 (94) 96 12/16/16 21:04 84 18 147/80 (102) 12/16/16 20:00 88 12/16/16 20:00 98.0 79 22 132/77 (95) 94 12/16/16 19:00 84 12/16/16 18:00 82 12/16/16 18:00 82 20 96 12/16/16 16:00 74 12/16/16 16:00 98.6 74 18 115/54 (74) 96 12/16/16 15:00 66 12/16/16 15:00 66 10 106/76 (86) 95 12/16/16 14:00 74 11 91/56 (68) 91 12/16/16 14:00 74 12/16/16 13:56 93 Nasal Cannula 3.00 12/16/16 13:00 80 21 128/86 (100) 96 12/16/16 13:00 80 12/16/16 12:00 74 12/16/16 12:00 98.9 74 24 112/72 (85) I/O 12/16/16 12/16/16 12/16/16 12/17/16 12/17/16 12/17/16 06:59 14:59 22:59 06:59 14:59 22:59 Intake Total 250 ml 840 ml 845 ml Output Total 200 ml 651 ml 500 ml Balance 50 ml 189 ml 345 ml Intake Oral 840 ml 240 ml IV Total 250 ml 605 ml Output Urine Total 200 ml 650 ml 500 ml Stool Total 1 ml # Bowel Movements 0 Result Diagram: 12/16/16 0425 12/16/16 0425 Imaging Last Impressions Chest X-Ray 12/15/16 1810 Signed Impressions: Service Date/Time: Thursday, December 15, 2016 18:29 - CONCLUSION: 1. Volume loss with suspected pleural and parenchymal changes at the right lung. This can be correlated if the patient has had treatment at the right lung which could lead to atelectasis. Superimposed areas of consolidation at the right lung could have a similar appearance. 2. The left lung is clear. Eugene Roy MD CT Angiography 12/15/16 0000 Signed Impressions: Service Date/Time: Thursday, December 15, 2016 19:26 - CONCLUSION: 1. No pulmonary embolus. 2. Areas of consolidation seen throughout the right lung. There also appears to be volume loss in the right lung with shift of the heart and mediastinal structures towards the right. It should be correlated if the patient has had treatment in the right lung. The patient has a history of lung carcinoma. There are areas of increased density seen throughout much of the right lung could be related to post treatment change, acute consolidation from infection or neoplastic change. 3. Suspected loculated effusions seen posteriorly and inferiorly in the right chest. 4. Adenopathy in the right axillary region and possibly in the subcarinal and right hilar regions. There are also some mildly prominent lymph nodes in the left prevascular region. There are mildly prominent lymph nodes in the upper celiac region. 5. Left adrenal gland adenoma. Eugene Roy MD Objective Remarks GENERAL: This is a well-nourished, well-developed patient, in no apparent distress. CARDIOVASCULAR: Regular rate and rhythm without murmurs, gallops, or rubs. RESPIRATORY: Bibasilar crackles. No wheezes, rales, or rhonchi. GASTROINTESTINAL: Abdomen soft, non-tender, nondistended. Normal active bowel sounds MUSCULOSKELETAL: Extremities without clubbing, cyanosis, +1 edema in hands and feet NEURO: Alert & Oriented x4 to person, place, time, situation. Moves all ext x4 A/P Problem List: (1) Sepsis ICD Code: A41.9 - Sepsis, unspecified organism Status: Acute Plan: Patient with respiratory failure secondary to acute pneumonia with pleural effusion Continue with care and antibiotics Leukocytosis improved (2) Acute respiratory failure with hypoxia ICD Code: J96.01 - Acute respiratory failure with hypoxia Status: Acute Plan: 84% on room air Continue with oral antibiotics, follow-up sputum. Bronchodilators Continue oxygen for hypoxemic failure Patient appears volume overloaded with edema and crackles in the bases and with increased weight gain We'll add Bumex and follow output echo pending Assessment and Plan [facility] Yanelis Bear MD Dec 17, 2016 11:43
[2016-12-17] MEDS ORDERED: PHARMACY ORDERED LAB ONE (11:45)
[2016-12-17] MEDS: MOXIFLOXACIN HYDROCHLORIDE 400 MG TAB PO SCH (14:45)
[2016-12-17] MEDS: ENOXAPARIN SODIUM 40 MG/0.4 ML SYRINGE SQ SCH (14:45)
[2016-12-17] MEDS ORDERED: IMPLANTED VASCULAR ACCESS PORT - SODIUM CHLORIDE FLUSH IV FLUSH SCH (15:45)
[2016-12-17] MEDS ORDERED: IMPLANTED VASCULAR ACCESS PORT - SODIUM CHLORIDE FLUSH PRN IV FLUSH (15:45)
[2016-12-17] MEDS: BUMETANIDE INJ 1 MG/4 ML VIAL IV PUSH SCH (16:50)
--- NOTE | 2016-12-17 19:38 | HHI.PR ---
Subjective Remarks 51 YOWM with Adenocarcinoma lung, malig pl effusion, RLL pn Breathing better Mild chest pain with breathing No Fever Feels comfortable. Objective Vital Signs Vital Signs Date Time Temp Pulse Resp B/P (MAP) Pulse Ox O2 Delivery O2 Flow Rate FiO2 12/17/16 16:00 98.4 81 18 117/80 (92) 93 12/17/16 13:00 74 21 12/17/16 12:00 98.4 72 18 122/65 (84) 95 12/17/16 10:00 80 22 113/59 (77) 93 12/17/16 10:00 80 12/17/16 09:00 78 13 111/66 (81) 93 12/17/16 08:00 98.2 70 10 115/66 (82) 93 12/17/16 08:00 96 Nasal Cannula 4.00 12/17/16 08:00 73 12/17/16 08:00 93 Nasal Cannula 4.00 12/17/16 07:00 72 12 112/73 (86) 94 12/17/16 06:00 74 12 106/56 (73) 94 12/17/16 06:00 75 12/17/16 05:00 78 15 119/72 (88) 93 12/17/16 04:00 72 12/17/16 04:00 98.4 72 16 111/80 (90) 94 12/17/16 03:00 76 11 113/72 (86) 94 12/17/16 02:00 76 12/17/16 02:00 82 14 134/68 (90) 93 12/17/16 01:00 84 18 124/68 (86) 93 12/17/16 00:00 81 12/17/16 00:00 97.8 81 18 100/69 (79) 94 12/16/16 23:00 86 25 140/88 (105) 95 12/16/16 22:05 94 Nasal Cannula 3.00 12/16/16 22:00 83 12/16/16 22:00 90 26 132/75 (94) 96 12/16/16 21:04 84 18 147/80 (102) 12/16/16 20:00 88 12/16/16 20:00 98.0 79 22 132/77 (95) 94 I/O 8/29/17 8/29/17 12/16/16 12/17/16 12/17/16 12/17/16 07:00 15:00 23:00 07:00 15:00 23:00 Intake Total 250 ml 840 ml 845 ml 100 ml 1000 ml Output Total 200 ml 651 ml 500 ml 1250 ml Balance 50 ml 189 ml 345 ml 100 ml -250 ml Intake Oral 840 ml 240 ml 1000 ml IV Total 250 ml 605 ml 100 ml Output Urine Total 200 ml 650 ml 500 ml 1250 ml Stool Total 1 ml # Bowel Movements 0 1 Result Diagram: 12/16/1642412/16/16424 Objective Remarks GENERAL: WBWN Wm, NAD SKIN: Warm and dry. HEAD: Normocephalic. EYES: No scleral icterus. No injection or drainage. NECK: Supple, trachea midline. No JVD or lymphadenopathy. CARDIOVASCULAR: Regular rate and rhythm without murmurs, gallops, or rubs. RESPIRATORY: Breath sounds equal bilaterally. No accessory muscle use. GASTROINTESTINAL: Abdomen soft, non-tender, nondistended. MUSCULOSKELETAL: No cyanosis, or edema. BACK: Nontender without obvious deformity. No CVA tenderness. A/P Assessment and Plan RLL Pneumonia Small loculated pl effusion Atelactesis [place] lung PLAN: DW pt and his Cont Abx Supplement 02 Aerosol nebs Stable to tr to floor Parminder Sanchez MD Dec 17, 2016 19:38
[2016-12-18] VITALS (8 sets, daily range): BP systolic 104–143; BP diastolic 68–83; PULSE 72–93; RESP 20; TEMP 98–99.1; O2SAT 86–97
[2016-12-18] MEDS: CHLORHEXIDINE GLUCONATE 2 % 1 PACK (2 CLOTHS)(taper/protocol) TOPICAL SCH (04:00)
[2016-12-18] MEDS: AZITHROMYCIN 250 MG TAB PO SCH (09:03)
[2016-12-18] MEDS: DOCUSATE SODIUM 50 MG/SENNA 8.6 MG TAB PO SCH ×2 (09:03→21:42)
[2016-12-18] MEDS: [UNRECOGNIZED DRUG - OTHER] PO SCH ×2 (09:03→21:00)
[2016-12-18] MEDS: BUMETANIDE INJ 1 MG/4 ML VIAL IV PUSH SCH (09:04)
[2016-12-18] MEDS: SODIUM CHLORIDE 0.9% FLUSH 10 ML FLUSH IV FLUSH SCH ×2 (09:05→21:42)
--- NOTE | 2016-12-18 10:46 | HHI.PR ---
Subjective Remarks Patient seen and evaluated today in follow-up for hypoxemia, pneumonia and fluid overload Status post diuresis of 2.7 L. Echocardiogram pending Objective Vitals Vital Signs Date Time Temp Pulse Resp B/P (MAP) Pulse Ox O2 Delivery O2 Flow Rate FiO2 12/18/16 08:00 98.5 74 20 127/72 (90) 97 12/18/16 04:00 98.4 93 20 104/75 (85) 92 12/18/16 00:00 98.0 88 20 143/83 (103) 97 12/17/16 20:00 99.0 88 16 94 12/17/16 19:48 94 Nasal Cannula 4.00 12/17/16 19:00 94 Nasal Cannula 4.00 12/17/16 16:00 98.4 81 18 117/80 (92) 93 12/17/16 13:00 74 21 12/17/16 12:00 98.4 72 18 122/65 (84) 95 I/O 12/17/16 12/17/16 12/17/16 12/18/16 12/18/16 12/18/16 07:00 15:00 23:00 07:00 15:00 23:00 Intake Total 845 ml 100 ml 1000 ml 480 ml Output Total 500 ml 1675 ml Balance 345 ml 100 ml -675 ml 480 ml Intake Oral 240 ml 1000 ml 480 ml IV Total 605 ml 100 ml Output Urine Total 500 ml 1675 ml # Voids 3 # Bowel Movements 0 1 0 Result Diagram: 12/16/16 0425 12/16/16 0425 Objective Remarks GENERAL: This is a well-nourished, well-developed patient, short of breath off of oxygen and 87% CARDIOVASCULAR: Regular rate and rhythm without murmurs, gallops, or rubs. RESPIRATORY: Bibasilar crackles. No wheezes, rales, or rhonchi. GASTROINTESTINAL: Abdomen soft, non-tender, nondistended. Normal active bowel sounds MUSCULOSKELETAL: Extremities without clubbing, cyanosis, +1 edema in hands and feet NEURO: Alert & Oriented x4 to person, place, time, situation. Moves all ext x4 A/P Problem List: (1) Sepsis ICD Code: A41.9 - Sepsis, unspecified organism Status: Acute Plan: Patient with respiratory failure secondary to acute pneumonia with pleural effusion Continue with care and antibiotics Leukocytosis improved Continue Avelox, azithromycin (2) Acute respiratory failure with hypoxia ICD Code: J96.01 - Acute respiratory failure with hypoxia Status: Acute Plan: 87% on room air Continue with oral antibiotics, follow-up sputum. Bronchodilators Continue oxygen for hypoxemic failure Continue Bumex and follow output echo pending Assessment and Plan enoxaparin Yanelis Bear MD Dec 18, 2016 10:46
[2016-12-18] MEDS: MOXIFLOXACIN HYDROCHLORIDE 400 MG TAB PO SCH (13:37)
[2016-12-18] MEDS: ENOXAPARIN SODIUM 40 MG/0.4 ML SYRINGE SQ SCH (13:38)
--- NOTE | 2016-12-18 16:18 | ECHRPT ---
Indication: sob CONCLUSIONS The left ventricular systolic function is normal with an estimated ejection fraction in the range of 55-60%. Normal left ventricular size. Mild mitral valve regurgitation. There is mild tricuspid valve regurgitation. The pulmonary valve is not well visualized. BP: / HR: Rhythm: MEASUREMENTS (Male / Female) Normal Values Technical Quality:Fair 2D ECHO LV Diastolic Diameter PLAX 4.8 cm 4.2 - 5.9 / 3.9 - 5.3 cm LV Systolic Diameter PLAX 3.6 cm IVS Diastolic Thickness 1.6 cm 0.6 - 1.0 / 0.6 - 0.9 cm LVPW Diastolic Thickness 0.9 cm 0.6 - 1.0 / 0.6 - 0.9 cm LV Relative Wall Thickness 0.5 RV Internal Dim ED PLAX 3.1 cm M-MODE Aortic Root Diameter MM 3.8 cm LA Systolic Diameter MM 3.8 cm LA Ao Ratio MM 1.0 AV Cusp Separation MM 2.9 cm DOPPLER Mitral E Point Velocity 89.8 cm/s Mitral A Point Velocity 86.9 cm/s Mitral E to A Ratio 1.0 LV E' Lateral Velocity 11.0 cm/s Mitral E to LV E' Lateral Ratio 8.2 LV E' Septal Velocity 7.7 cm/s Mitral E to LV E' Septal Ratio 11.7 FINDINGS LEFT VENTRICLE The left ventricular systolic function is normal with an estimated ejection fraction in the range of 55-60%. Normal left ventricular size. RIGHT VENTRICLE Normal right ventricular size and systolic function. LEFT ATRIUM The left atrial size is normal. RIGHT ATRIUM The right atrial size is normal. ATRIAL SEPTUM Normal atrial septal thickness without atrial level shunting by limited color doppler interrogation. AORTA The aortic root and proximal ascending aorta are normal in size on limited imaging. MITRAL VALVE Structurally normal mitral valve. Mild mitral valve regurgitation. AORTIC VALVE Trileaflet aortic valve. No aortic valve stenosis or regurgitation. TRICUSPID VALVE Structurally normal tricuspid valve. There is mild tricuspid valve regurgitation. PULMONARY VALVE The pulmonary valve is not well visualized. VESSELS The inferior vena cava is normal in size. PERICARDIUM No pericardial effusion. Reynold Becerra MD, FACC (Electronically Signed) Final Date:18 December 2016 16:17
--- NOTE | 2016-12-18 20:25 | HHI.PR ---
Subjective Remarks 51 YOWM with Adenocarcinoma lung, malig pl effusion, RLL pn Breathing better Mild chest pain with breathing No Fever Feels comfortable. Diureasing Objective Vital Signs Vital Signs Date Time Temp Pulse Resp B/P (MAP) Pulse Ox O2 Delivery O2 Flow Rate FiO2 12/18/16 16:00 99.1 72 20 108/69 (82) 96 12/18/16 15:41 95 Nasal Cannula 4.00 12/18/16 12:00 98.6 73 20 116/72 (87) 96 12/18/16 10:58 Nasal Cannula 2.00 90 12/18/16 08:00 98.5 74 20 127/72 (90) 97 12/18/16 04:00 98.4 93 20 104/75 (85) 92 12/18/16 00:00 98.0 88 20 143/83 (103) 97 I/O 12/17/16 12/17/16 12/17/16 12/18/16 12/18/16 12/18/16 06:59 14:59 22:59 06:59 14:59 22:59 Intake Total 845 ml 100 ml 1000 ml 480 ml 900 ml Output Total 500 ml 1675 ml Balance 345 ml 100 ml -675 ml 480 ml 900 ml Intake Oral 240 ml 1000 ml 480 ml 900 ml IV Total 605 ml 100 ml Output Urine Total 500 ml 1675 ml # Voids 3 4 # Bowel Movements 0 1 0 Result Diagram: 12/16/1642412/16/16424 Objective Remarks GENERAL: WBWN Wm, NAD SKIN: Warm and dry. HEAD: Normocephalic. EYES: No scleral icterus. No injection or drainage. NECK: Supple, trachea midline. No JVD or lymphadenopathy. CARDIOVASCULAR: Regular rate and rhythm without murmurs, gallops, or rubs. RESPIRATORY: Breath sounds equal bilaterally. No accessory muscle use. GASTROINTESTINAL: Abdomen soft, non-tender, nondistended. MUSCULOSKELETAL: No cyanosis, or edema. BACK: Nontender without obvious deformity. No CVA tenderness. A/P Assessment and Plan RLL Pneumonia Small loculated pl effusion Atelactesis [place] lung PLAN: DW pt and his Cont Abx Supplement 02 Aerosol nebs Check Echo Wean 02 and assess for home 02 Parminder Sanchez MD Dec 18, 2016 20:25
[2016-12-19] VITALS: BP 137/72; PULSE 82; RESP 18; TEMP 97.5; O2SAT 98
[2016-12-19 08:00] VITALS: BP 95/68; PULSE 77; RESP 20; TEMP 100.2; O2SAT 94
[2016-12-19 08:21] VITALS: O2SAT 96
[2016-12-19] MEDS: SODIUM CHLORIDE 0.9% FLUSH 10 ML FLUSH IV FLUSH SCH (08:31)
[2016-12-19] MEDS: DOCUSATE SODIUM 50 MG/SENNA 8.6 MG TAB PO SCH (09:00)
[2016-12-19] MEDS: [UNRECOGNIZED DRUG - OTHER] PO SCH (09:00)
[2016-12-19] MEDS: AZITHROMYCIN 250 MG TAB PO SCH (09:00)
[2016-12-19] MEDS ORDERED: FURO1TAB62 PO (10:33)
--- NOTE | 2016-12-19 10:44 | HHI.DCPOC ---
Discharge Care Plan Diagnosis: (1) PNA (pneumonia) (2) Hypoxemia Goals to Promote Your Health * To prevent worsening of your condition and complications * To maintain your health at the optimal level Directions to Meet Your Goals Take your medications as prescribed Follow your dietary instruction Follow activity as directed Keep your appointments as scheduled Take your immunizations and boosters as scheduled If your symptoms worsen call your PCP, if no PCP go to Urgent Care Center or Emergency Room Smoking is Dangerous to Your Health. Avoid second hand smoke Call the 24-hour hour crisis hotline for domestic abuse at Yanelis Bear MD Dec 19, 2016 10:44
[2016-12-19] MEDS ORDERED: OXYGENDME NAS.CANULA (11:04)
[2016-12-19 11:54] VITALS: BP 116/78; PULSE 66; RESP 20; TEMP 99.1; O2SAT 94
[2016-12-19] MEDS: ENOXAPARIN SODIUM 40 MG/0.4 ML SYRINGE SQ SCH (12:43)
--- NOTE | 2016-12-19 12:50 | RADRPT ---
EXAM DATE/TIME: 12/19/2016 11:18 [facility] COMPARISON: CHEST SINGLE AP, December 15, 2016, 18:29. CT PULMONARY ANGIOGRAM, December 15, 2016, 19:26 INDICATIONS : Short of breath MEDICAL HISTORY : Carcinoma, lung. Radiation treatment SURGICAL HISTORY : None. ENCOUNTER: Subsequent ACUITY: 4 - 6 days PAIN SCORE: 2/10 LOCATION: Bilateral chest FINDINGS: Persistent consolidative is on the right [id number] in good position, stable in interval. Left raman ng is clear. The heart is minimally large. CONCLUSION: Stable chest. Dillon Padilla MD FACR on December 19, 2016 at 12:47 Board Certified Radiologist. This report was verified electronically.
[2016-12-19] MEDS ORDERED: SODIUM CHLORIDE 0.9% FLUSH 10 ML FLUSH IV FLUSH PRN (13:00)
[2016-12-19] MEDS: MOXIFLOXACIN HYDROCHLORIDE 400 MG TAB PO SCH (13:26)
--- NOTE | 2016-12-23 11:30 | HHI.DS ---
Discharge Summary Admission Date Dec 15, 2016 at 22:04 Discharge Date: Dec 19, 2016 Admitting Diagnosis pneumonia, pleural effusion (1) Sepsis ICD Code: A41.9 - Sepsis, unspecified organism Status: Acute (2) Acute respiratory failure with hypoxia ICD Code: J96.01 - Acute respiratory failure with hypoxia Status: Acute Procedures none Brief History - From Admission Written by Ignacio Tsang, acting as scribe for Dr. Drew on 12/16/16 at 13: 10. 51 year-old male with known history of lung cancer who is undergoing chemotherapy at this time presented to the hospital because of 2 week history of shortness of breath and fatigue. 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 Salazar at [facility]. Patient has undergone 21 radiation treatments and is on chemotherapy. Patient states that he was just takien off 1 chemotherapeutic agent approximate 6 weeks ago. He started to feel better that time and was diagnosed with pneumonia and was given 2 week regimen of Levaquin, steroids. Patient felt much better. Then approximately 2 weeks ago he started feeling shortness of breath, fatigue and run down again. He did go to the oncologist office on Thursday of last week in which he actually felt good at that time. Then on Thursday he started feeling bad again. Patient came to the hospital because he thought he may have pneumonia again and needed treatment. Patient was found to have acute respiratory failure, sepsis, loculated pleural effusion. It was recommended that the patient be admitted to ICU for continued management and treatment. Patient does have a history of pleural effusion in which he did have talc treatment in February 2015. He is being followed by [facility] and was notified that if his effusion got any larger than he would need to have thoracentesis performed. CBC/BMP: 12/19/16 0605 Imaging Last Impressions Chest X-Ray 12/19/16 0000 Signed Impressions: Service Date/Time: Monday, December 19, 2016 11:18 - CONCLUSION: Stable chest. Dillon Padilla MD FACR CT Angiography 12/15/16 0000 Signed Impressions: Service Date/Time: Thursday, December 15, 2016 19:26 - CONCLUSION: 1. No pulmonary embolus. 2. Areas of consolidation seen throughout the right lung. There also appears to be volume loss in the right lung with shift of the heart and mediastinal structures towards the right. It should be correlated if the patient has had treatment in the right lung. The patient has a history of lung carcinoma. There are areas of increased density seen throughout much of the right lung could be related to post treatment change, acute consolidation from infection or neoplastic change. 3. Suspected loculated effusions seen posteriorly and inferiorly in the right chest. 4. Adenopathy in the right axillary region and possibly in the subcarinal and right hilar regions. There are also some mildly prominent lymph nodes in the left prevascular region. There are mildly prominent lymph nodes in the upper celiac region. 5. Left adrenal gland adenoma. Eugene Roy MD PE at Discharge GENERAL: This is a well-nourished, well-developed patient, short of breath off of oxygen and 87% CARDIOVASCULAR: Regular rate and rhythm without murmurs, gallops, or rubs. RESPIRATORY: Bibasilar crackles. No wheezes, rales, or rhonchi. GASTROINTESTINAL: Abdomen soft, non-tender, nondistended. Normal active bowel sounds MUSCULOSKELETAL: Extremities without clubbing, cyanosis, +1 edema in hands and feet NEURO: Alert & Oriented x4 to person, place, time, situation. Moves all ext x4 Pt update on day of discharge Seen in follow-up for respiratory failure for discharge planning. Hospital Course Patient is a 51-year-old gentleman was admitted with evidence of sepsis from pneumonia and with respiratory failure and hypoxemia. He was treated for the same. He was seen by affiliate marketing specialist team and was discharged home with oxygen Pt Condition on Discharge: Good Discharge Disposition: Discharge Home Discharge Time: <= 30 minutes Discharge Instructions DIET: Follow Instructions for: As Tolerated, No Restrictions Activities you can perform: Regular-No Restrictions New Medications: Furosemide (Lasix) 20 Mg Tab 20 MG PO DAILY for fluid, #30 TAB 0 Refills Oxygen (O2) (Oxygen (O2)) Device LITER JORGE.CANULA CONTINUOUS for Prevent Hypoxemia, #2 Oxygen Concentrator Portable Gaseous 2 L/min via Nasal Canula Continuous For 99 months npi [id number] Continued Medications: [[place]] () 400 MG PO BID Yanelis Bear MD Dec 23, 2016 11:30
== END 2016-12-19 15:53 | disposition home or self-care (01) | DRG 871 ==
LOC: PHED 17:58 → PHEDA 22:04 → PHICU 23:16 → PH3B 12-17 23:32
PROVIDERS: ADMIT Hospitalist; ATTEND Hospitalist
DX: A41.9 Sepsis, unspecified organism (principal); J96.01 Acute respiratory failure with hypoxia; J18.9 Pneumonia, unspecified organism; C34.90 Malignant neoplasm of unspecified part of unspecified bronchus or lung; Z92.21 Personal history of antineoplastic chemotherapy; Z92.3 Personal history of irradiation; Z87.891 Personal history of nicotine dependence
CPT/HCPCS: 36600; 71010; 71020; 71275; 80048; 80053; 81001; 82550; 82565; 82805; 83605; 83735; 84100; 84484; 85025; 85610; 85730; 87040; 87070; 87205; 87449; 87641; 87804; 93005; 93306; 94150; 94620; 94640; 94664; 96365; 96366; 96367; J1642; J1650; J3370; J7040; J7050; J7613; J7644; Q9967